=== PATIENT | female | born 1985 | race Caucasian/White ===

== ENCOUNTER 2017-07-26 09:30 | Emergency (ER) | payer OTHER, SELFPAY ==
[2017-07-26 09:31] VITALS: BP 135/103; PULSE 84; RESP 18; TEMP 36.9; O2SAT 98; BMI 34.3
[2017-07-26 09:52] VITALS: BP 124/90; PULSE 80; RESP 14; O2SAT 98
[2017-07-26 10:16] LABS: Absolute Lymphocyte Count 1.57 X10^3/ul (0.83-4.51); Absolute Neutrophil Count 13.9 X10^3/uL (2.0-7.7); Basophil# 0.02 X10^3/uL; Basophil% 0.1 % (0-1); Hematocrit 50.2 % (37-47); Hemoglobin 17.7 g/dl (12.0-15.0); Lymphocyte # 1.57 X10^3/ul (4.0); Lymphocyte % 9.7 % (19-41); Mean Corp Hgb Conc 35.3 g/gl (32-36); Mean Corpuscular Hgb 32.3 pg (27.0-32.0); Mean Corpuscular Volume 91.6 fL (81-99); Mean Platelet Vol. 10.2 fl (6.2-12.0); Monocyte# 0.68 X10^3/uL; Monocyte% 4.2 % (0-10); Neutrophil # 13.92 X10^3/uL (2.7-7.7); Neutrophil % 85.7 % (47-70); Platelet Count 386 K/mm3 (150-450); RBC Distribution Width CV 13.3 % (11.6-14.6); RBC Distribution Width SD 44.5 fl (35.1-43.9); Red Blood Count 5.48 M/mm3 (4.2-5.4); White Blood Count 16.2 K/mm3 (4.4-11.0)
[2017-07-26 10:17] LABS: POSITIVE COUNT NO; POSITIVE DIFFERENTIAL NO; POSITIVE MORPHOLOGY NO
[2017-07-26] MEDS: 0.9% Normal Saline 1,000 ML 1000 ML IV (10:23)
[2017-07-26] MEDS: Ondansetron 4 MG/2 ML Vial IV (10:23)
[2017-07-26 10:31] LABS: BUN 21 mg/dL (7-18); Creatinine, Serum 0.96 mg/dL (0.55-1.02); EST Glomerular Filtration Rate 71 mL/min (>60); Estimated Creatinine Clearance 72.65 ml/min; Glucose 138 mg/dL (74-106)
[2017-07-26 10:32] LABS: AST(SGOT) 31 U/L (15-37); Alanine Aminotransfer ALT/SGPT 29 U/L (13-56); Albumin, Serum 4.1 g/dL (3.2-5.0); Alkaline Phosphatase 63 U/L (45-117); Anion Gap 10 (5-15); BUN/Creat Ratio 21.8 RATIO (10-20); Calcium,Total 9.5 mg/dL (8.5-10.1); Chloride 94 mmol/L (98-107); Est Glom Filt Rate - Afr Amer 86 mL/min (>60); Globulin 4.4 g/dL (2.2-4.2); Lipase 84 U/L (73-393); Potassium 3.4 mmol/L (3.5-5.1); Protein, Total 8.5 g/dL (6.4-8.2); Sodium Level 131 mmol/L (136-145)
--- NOTE | 2017-07-26 11:16 | CT_ITS ---
STUDY: CT ABDOMEN AND PELVIS WITH CONTRAST REASON FOR EXAM: Female, 32 years old. Abdominal pain, nausea and vomiting RADIATION DOSAGE (If Supplied By Facility): CTDIvol = ( 13.32 ) mGy, DLP = ( 852.54 ) mGycm TECHNIQUE: Transaxial images were obtained from the dome of the diaphragm to the symphysis pubis without oral contrast. 100 ml of Isovue 300 contrast was administered. Sagittal and coronal images were reconstructed. Individualized dose optimization techniques were used for this CT. COMPARISON: None. FINDINGS: The visualized lung bases are unremarkable. The visualized portions of the heart are within normal limits. Normal liver. There is non-visualization of the gallbladder, which may be secondary to either contraction or a prior cholecystectomy. Normal spleen. Normal pancreas. Normal bilateral adrenal glands. Normal right kidney. Normal left kidney. Normal visualized stomach. Normal small intestine. Normal colon. The appendix is visualized and appears normal. Normal abdominal aorta. Normal inferior vena cava. Normal retroperitoneum. Normal urinary bladder. Normal visualized uterus. Normal abdominal wall. Normal osseous structures. CT/Abdomen/Pelvis W IV Cont ONLY IMPRESSION: No acute findings. Nonvisualized gallbladder. Normal appearance of the small and large bowel. Normal appendix. Electronically Signed: Jayant Patel DO at 12:10 EST Tel , Service support ,
[2017-07-26 11:37] VITALS: BP 118/70; PULSE 88; RESP 14; O2SAT 99
--- NOTE | 2017-07-26 12:22 | ED.VISSUMM ---
- ER Visit Summary Date of Service: 07/26/17 Chief Complaint: Nausea and vomiting. History of Present Illness: The patient is a 32 F history of peptic ulcer disease. Prior cholecystectomy. Patient states that since Sunday she has had some crampy abdominal pain with nausea vomiting. No diarrhea. No melena. No hematemesis. Has menstrual period was 2 weeks ago. She states she is not . Denies any vaginal bleeding or discharge. No fever. No dysuria. Physical Examination: Female no acute distress. Vital signs are stable afebrile. Pulse ox 90% on room air no signs of hypoxia. Patient does not seem septic or toxic. HEENT exam unremarkable. Dry mucous membranes. Neck nontender no lymphadenopathy. Lungs clear to auscultation bilaterally. Heart regular rhythm rate about 85 no murmur. Abdomen is soft nondistended normal bowel sounds no peritoneal signs. Very mild left upper quadrant tenderness. Epigastric right upper quadrant right lower quadrant are unremarkable. No hernias or masses. No distention. No signs of obstruction. Moving all 4 extremities. Neurovascular intact. Back exam nontender. Neurologic exam is normal. Test Results: White count was elevated 16,000 she has had elevated white counts before. H&H is 17 and 50. Electrolytes sodium 131 potassium 3.4. BUN/creatinine 21 0.9 consistent with mild dehydration. Glucose of 138 normal anion gap. Liver enzymes normal other than a direct bilirubin of 1.2. Lipase normal at 84. Due to the patient's elevated white count states she was not feeling well I did obtain CT abdomen pelvis with IV contrast only which was negative. Status post cholecystectomy. Normal large and small bowel. Normal-appearing appendix is read by the radiologist reviewed by me. Emergency Department Course and Treatment: Repeat exam patient is doing better after IV fluids and IV Zofran. Repeat exam unchanged. I discussed with the patient and family they are comfortable with discharge to home. Treatment Plan: With p.o. Protonix for peptic ulcer disease. Zofran for nausea. Follow-up with her primary care physician Dr. Gia Braun and GI referral as needed. Disposition: Discharge Impression: Nausea and vomiting with abdominal cramping History of peptic ulcer disease This note was generated with Jumptapation software. It may contain incorrect words, spelling, and punctuation that were not noted in review of the chart prior to signing ED Disposition - Plan for ED Patient: Chief Complaint: Abd Pain Referrals: Gia Morse DO [Primary Care Provider] -
--- NOTE | 2017-07-26 12:25 | ED.DCSUM_ITS ---
- ER Visit Summary Date of Service: 07/26/17 Chief Complaint: Nausea and vomiting. History of Present Illness: The patient is a 32 F history of peptic ulcer disease. Prior cholecystectomy. Patient states that since Sunday she has had some crampy abdominal pain with nausea vomiting. No diarrhea. No melena. No hematemesis. Has menstrual period was 2 weeks ago. She states she is not . Denies any vaginal bleeding or discharge. No fever. No dysuria. Physical Examination: Female no acute distress. Vital signs are stable afebrile. Pulse ox 90% on room air no signs of hypoxia. Patient does not seem septic or toxic. HEENT exam unremarkable. Dry mucous membranes. Neck nontender no lymphadenopathy. Lungs clear to auscultation bilaterally. Heart regular rhythm rate about 85 no murmur. Abdomen is soft nondistended normal bowel sounds no peritoneal signs. Very mild left upper quadrant tenderness. Epigastric right upper quadrant right lower quadrant are unremarkable. No hernias or masses. No distention. No signs of obstruction. Moving all 4 extremities. Neurovascular intact. Back exam nontender. Neurologic exam is normal. Test Results: White count was elevated 16,000 she has had elevated white counts before. H&H is 17 and 50. Electrolytes sodium 131 potassium 3.4. BUN/ creatinine 21 0.9 consistent with mild dehydration. Glucose of 138 normal anion gap. Liver enzymes normal other than a direct bilirubin of 1.2. Lipase normal at 84. Due to the patient's elevated white count states she was not feeling well I did obtain CT abdomen pelvis with IV contrast only which was negative. Status post cholecystectomy. Normal large and small bowel. Normal- appearing appendix is read by the radiologist reviewed by me. Emergency Department Course and Treatment: Repeat exam patient is doing better after IV fluids and IV Zofran. Repeat exam unchanged. I discussed with the patient and family they are comfortable with discharge to home. Treatment Plan: With p.o. Protonix for peptic ulcer disease. Zofran for nausea. Follow-up with her primary care physician Dr. Gia Braun and GI referral as needed. Disposition: Discharge Impression: Nausea and vomiting with abdominal cramping History of peptic ulcer disease This note was generated with NewACTation software. It may contain incorrect words, spelling, and punctuation that were not noted in review of the chart prior to signing ED Disposition - Plan for ED Patient: Chief Complaint: Abd Pain Referrals: Gia Morse DO [Primary Care Provider] -
--- NOTE | 2017-07-26 12:25 | ED.DEP ---
ED Disposition - Plan for ED Patient: Disposition: Home or Assisted Living Chief Complaint: Abd Pain Instructions: ED PUD Vs Gastritis Prescriptions: Ondansetron [Zofran Odt] 4 mg PO Q4H PRN PRN #10 tab.rapdis PRN Reason: Nausea Pantoprazole Sodium [Protonix] 40 mg PO DAILY #30 tab Referrals: Gia Morse DO [Primary Care Provider] - 3-5 Days if not improving Additional Instructions: Fluids and rest. Zofran for nausea. Protonix for peptic ulcer disease. Return if feeling worse, fever, intractable vomiting, black or bloody stools or throwing up blood.
[2017-07-26] MEDS: Pantoprazole Sodium 40 MG Tablet PO (12:45)
[2017-07-26 12:47] VITALS: BP 115/70; PULSE 75; RESP 14; O2SAT 98
== END 2017-07-26 12:48 | disposition home or self-care (01) ==
PROVIDERS: Emergency Provider Emergency Medicine; Family Provider Family Medicine; PCP Family Medicine
DX: R11.2 Nausea with vomiting, unspecified (principal); R10.812 Left upper quadrant abdominal tenderness; K27.9 Peptic ulcer, site unspecified, unspecified as acute or chronic, without hemorrhage or perforation; Z90.49 Acquired absence of other specified parts of digestive tract
CPT/HCPCS: 74177; 80048; 80076; 83690; 85025; 96361; 96374; 96375; 99284; J7030; Q9967; J2405

== ENCOUNTER 2017-07-27 09:51 | Emergency (ER) | payer OTHER, SELFPAY ==
[2017-07-27 09:53] VITALS: BP 147/91; PULSE 79; RESP 18; TEMP 36.9; O2SAT 95; BMI 32.6
--- NOTE | 2017-07-27 10:24 | ED.VISSUMM ---
- ER Visit Summary Date of Service: 07/27/17 Chief Complaint: Nausea and vomiting History of Present Illness: The patient is a 32 F presenting with nausea and vomiting. She states it started on Sunday. She was seen in the ED yesterday for same complaints. She was given IV fluids, Zofran. Lab work was unremarkable. CT abdomen pelvis IV contrast showed no acute process. Patient was sent home with Protonix and Zofran. She states she was doing well until the middle the night when she began vomiting again. She has a history of peptic ulcer disease. Prior history of cholecystectomy. She has had subjective fever. She denies chest pain or shortness of breath. She has constipation. Denies possibility of . Denies other complaints. Physical Examination: Vitals are stable. Patient is afebrile. Alert no acute distress. HEENT exam is unremarkable. Neck is supple. Lungs are clear and equal bilaterally. Heart is regular rate and rhythm. Abdomen is soft mild epigastric tenderness with no rebound or guarding. Extremities are unremarkable. Skin is warm and dry. No focal neurologic deficit. Remainder of exam is unremarkable. Emergency Department Course and Treatment: Patient was given IV fluids, Phenergan. CBC shows a white count 12.7 which is improved from yesterday. Chemistries show sodium 133, glucose 122. Lipase is normal. Total bili 1.4, AST 58. HCG negative. Patient was given a GI cocktail with some improvement. She is able to tolerate p.o. in the emergency department. Advised follow-up with her primary care physician and Dr. Waite for GI. Advised return to ED for worsening complaints. Disposition: Discharge home Impression: Nausea, vomiting This note was generated with Browserling dictation software. It may contain incorrect words, spelling, and punctuation that were not noted in review of the chart prior to signing ED Disposition - Plan for ED Patient: Chief Complaint: Fatigue Referrals: Gia Morse DO [Primary Care Provider] -
[2017-07-27 10:36] LABS: Absolute Neutrophil Count 9.1 X10^3/uL (2.0-7.7); Basophil# 0.02 X10^3/uL; Basophil% 0.2 % (0-1); Eosinophil# 0.02 X10^3/uL; Eosinophils% 0.2 % (0-5); Hematocrit 48.3 % (37-47); Hemoglobin 16.6 g/dl (12.0-15.0); Lymphocyte % 17.3 % (19-41); Mean Corp Hgb Conc 34.4 g/gl (32-36); Mean Corpuscular Hgb 31.9 pg (27.0-32.0); Mean Corpuscular Volume 92.7 fL (81-99); Mean Platelet Vol. 10.2 fl (6.2-12.0); Monocyte# 1.34 X10^3/uL; Monocyte% 10.6 % (0-10); Neutrophil # 9.09 X10^3/uL (2.7-7.7); Neutrophil % 71.5 % (47-70); Platelet Count 349 K/mm3 (150-450); RBC Distribution Width CV 13.1 % (11.6-14.6); RBC Distribution Width SD 44.7 fl (35.1-43.9); Red Blood Count 5.21 M/mm3 (4.2-5.4); White Blood Count 12.7 K/mm3 (4.4-11.0)
[2017-07-27] MEDS: 0.9% Normal Saline 1,000 ML 1000 ML IV (10:37)
[2017-07-27 10:47] LABS: POSITIVE COUNT NO; POSITIVE DIFFERENTIAL NO; POSITIVE MORPHOLOGY NO
[2017-07-27 10:56] LABS: ALB/GLOB Ratio 0.9 RATIO (0.9-2.4); AST(SGOT) 58 U/L (15-37); Alanine Aminotransfer ALT/SGPT 50 U/L (13-56); Albumin, Serum 3.7 g/dL (3.2-5.0); Alkaline Phosphatase 56 U/L (45-117); Anion Gap 6 (5-15); BUN 14 mg/dL (7-18); BUN/Creat Ratio 14.9 RATIO (10-20); Calcium,Total 8.6 mg/dL (8.5-10.1); Chloride 98 mmol/L (98-107); Creatinine, Serum 0.94 mg/dL (0.55-1.02); EST Glomerular Filtration Rate 73 mL/min (>60); Est Glom Filt Rate - Afr Amer 88 mL/min (>60); Estimated Creatinine Clearance 74.19 ml/min; Globulin 4.3 g/dL (2.2-4.2); Glucose 122 mg/dL (74-106); Lipase 111 U/L (73-393); Potassium 3.9 mmol/L (3.5-5.1); Sodium Level 133 mmol/L (136-145)
[2017-07-27 11:03] LABS: Pregnancy, Serum, hCG Quali. NEGATIVE Negative (0-9 Nonpreg)
--- NOTE | 2017-07-27 11:22 | ED.DEP ---
ED Disposition - Plan for ED Patient: Chief Complaint: Fatigue Instructions: ED Nausea Vomiting Prescriptions: ProMETHAzine [Phenergan] 25 mg PO Q6H PRN PRN #10 tablet PRN Reason: Nausea Referrals: Gia Morse DO [Primary Care Provider] - Simon Waite MD [STAFF PHYSICIAN] -
[2017-07-27 11:39] VITALS: BP 129/66; PULSE 71; RESP 16; O2SAT 97
== END 2017-07-27 11:40 | disposition home or self-care (01) ==
PROVIDERS: Emergency Provider Emergency Medicine; Family Provider Family Medicine; PCP Family Medicine
DX: R11.2 Nausea with vomiting, unspecified (principal); R10.816 Epigastric abdominal tenderness; K59.00 Constipation, unspecified; K27.9 Peptic ulcer, site unspecified, unspecified as acute or chronic, without hemorrhage or perforation; Z90.49 Acquired absence of other specified parts of digestive tract; Z79.899 Other long term (current) drug therapy
CPT/HCPCS: 80053; 83690; 84703; 85025; 96361; 96374; 99283; J7030; A4216

== ENCOUNTER 2017-10-05 21:44 | Emergency (ER) | payer OTHER, SELFPAY ==
[2017-10-05 21:47] VITALS: BP 147/117; PULSE 101; RESP 16; TEMP 36.9; O2SAT 96; BMI 32.3
--- NOTE | 2017-10-05 22:06 | ED.DCSUM_ITS ---
- ER Visit Summary Date of Service: 10/05/17 Chief Complaint: [] Nausea and vomiting History of Present Illness: The patient is a 32 F [] complaining of nausea and vomiting for last 2 days. She had 3 episodes of emesis on Sunday and none on . She had 4 episodes today. The last one she has had some very small streaks of blood. She showed me a picture of this which is very mild. She had one episode of loose diarrhea on Sunday only. She denies any significant abdominal pain. No bad food exposures or recent antibiotics. She has been using Prilosec at baseline for her history of stomach ulcer. She had a similar episode 2 months ago with 2 visits to the ER. She did not receive a diagnosis. She did not follow-up with GI. She had a CT abdomen pelvis at that time that showed nothing acute. Lab work was essentially unremarkable. Physical Examination: Vital signs reviewed General: Well-nourished well-developed Head: Normocephalic atraumatic Eyes: Pupils equal round and reactive to light extraocular movements intact ENT: TMs clear no hemotympanum no trauma Neck: Nontender full range of motion Cardiovascular: Regular rate rhythm no murmurs normal S1-S2 Respiratory: No distress clear to auscultation bilaterally chest nontender Abdomen: Soft nontender nondistended normal bowel sounds no masses Back: Nontender no CVA tenderness Extremities: Nontender active range of motion ?4 extremities no trauma Skin: Normal color no trauma Neuro alert oriented cranial nerves II through XII intact normal strength sensation reflexes Test Results: [] Emergency Department Course and Treatment: Given IV fluids Zofran and Toradol or lab work obtained. Lab work essentially unremarkable. Sodium 134 which is similar to previous. Potassium 3.3. Chloride 96 down from 98 previous. Total bili 1.4 which is equal to previous. Lipase negative. negative. Patient given Phenergan as well for her symptoms with good relief. At this time I do not feel she needs to be admitted. I do not feel she needs another CAT scan. I feel she can follow-up. She will be given antinausea medications for home. Treatment Plan: [] Disposition: [] Impression: [] Nausea and Vomiting This note was generated with [employer] dictation software. It may contain incorrect words, spelling, and punctuation that were not noted in review of the chart prior to signing ED Disposition - Plan for ED Patient: Chief Complaint: Nausea/Vomiting Referrals: Gia Morse DO [Primary Care Provider] -
[2017-10-05] MEDS: Ondansetron 4 MG/2 ML Vial IV (22:33)
[2017-10-05] MEDS: Ketorolac 30 MG/ML Syringe IV (22:33)
[2017-10-05] MEDS: 0.9% Normal Saline 1,000 ML 1000 ML IV (22:33)
[2017-10-05 23:05] LABS: AST(SGOT) 20 U/L (15-37); Alanine Aminotransfer ALT/SGPT 30 U/L (13-56); Albumin, Serum 4.2 g/dL (3.2-5.0); Alkaline Phosphatase 60 U/L (45-117); Anion Gap 9 (5-15); BUN 19 mg/dL (7-18); BUN/Creat Ratio 18.8 RATIO (10-20); Bilirubin, Direct 0.29 mg/dL (0.00-0.30); Calcium,Total 9.4 mg/dL (8.5-10.1); Chloride 96 mmol/L (98-107); Creatinine, Serum 1.01 mg/dL (0.55-1.02); EST Glomerular Filtration Rate 67 mL/min (>60); Est Glom Filt Rate - Afr Amer 81 mL/min (>60); Estimated Creatinine Clearance 69.05 ml/min; Globulin 4.3 g/dL (2.2-4.2); Glucose 124 mg/dL (74-106); Lipase 116 U/L (73-393); Potassium 3.3 mmol/L (3.5-5.1); Protein, Total 8.5 g/dL (6.4-8.2); Sodium Level 134 mmol/L (136-145)
[2017-10-05 23:15] LABS: Pregnancy, Serum, hCG Quali. NEGATIVE Negative (0-9 Nonpreg)
[2017-10-05] MEDS: proMETHazine 25 MG/ML Syringe 12.5 MG IV (23:46)
--- NOTE | 2017-10-05 23:53 | ED.DEP ---
ED Disposition - Plan for ED Patient: Disposition: Home or Assisted Living Chief Complaint: Nausea/Vomiting Instructions: ED Nausea Vomiting Prescriptions: Ondansetron [Zofran Odt] 4 mg PO Q8H PRN PRN #10 tablet PRN Reason: Nausea Referrals: Gia Morse DO [Primary Care Provider] -
[2017-10-06 01:04] VITALS: BP 154/90; PULSE 94; RESP 18; O2SAT 98
== END 2017-10-06 01:05 | disposition home or self-care (01) ==
PROVIDERS: Emergency Provider Emergency Medicine; Family Provider Family Medicine; PCP Family Medicine
DX: R11.2 Nausea with vomiting, unspecified (principal); R19.7 Diarrhea, unspecified; E66.9 Obesity, unspecified; K25.9 Gastric ulcer, unspecified as acute or chronic, without hemorrhage or perforation; Z90.49 Acquired absence of other specified parts of digestive tract; Z79.899 Other long term (current) drug therapy
CPT/HCPCS: 80048; 80076; 83690; 84703; 96361; 96374; 96375; 99285; J7030; A4216; J2405

== ENCOUNTER 2019-08-07 10:01 | Emergency (ER) | payer SELFPAY ==
[2019-08-07 10:02] VITALS: BP 167/88; PULSE 101; RESP 16; TEMP 36.6; O2SAT 100; BMI 27.4
--- NOTE | 2019-08-07 10:25 | ED.DCSUM_ITS ---
- ER Visit Summary Date of Service: 08/07/19 Chief Complaint: Vaginal bleeding and reportedly 7 weeks History of Present Illness: The patient is a 34 F G2, P1 Ab0. Patient states that she is about 7 weeks . She has had no care. Reportedly had a positive test both at home and in urgent care. States that she has had spotting to very mild bleeding for the last 3 weeks since July 19. No pain. No discharge. No dysuria. With her first she had no problems. She was a . Physical Examination: 34-year-old female no acute distress vital signs stable afebrile. HEENT exam unremarkable. Neck nontender. Lungs clear to auscultat ion. Heart regular rhythm no murmur. Abdomen soft nontender normal bowel sounds no peritoneal signs. No suprapubic tenderness. Moving all 4 extremities. No edema. Neurologically awake alert with no focal motor deficits. Test Results: [Quant is 185. ABO H is a positive. I discussed these results with the patient and her significant other. Emergency Department Course and Treatment: Patient with vaginal bleeding reportedly . Consider miscarriage versus ectopic but she is having absolutely no pain. Quantitative hCG and blood type will be obtained. She is had a prior child but there is no blood type that I can find in the computer. Repeat exam at 1224 patient is doing well. She is having no pain. She has had no pain. Her abdomen is benign. She has deferred a pelvic exam. She will follow-up with her [facility] office [facility] and have a repeat quant and exam next week possibly ultrasound if her quant is getting larger. She knows return if worse. Treatment Plan: Follow-up with [facility]. Return if pain or heavy bleeding. Disposition: Discharge Impression: Acute vaginal bleeding with first trimester Threatened miscarriage This note was generated with [employer] software. It may contain incorrect words, spelling, and punctuation that were not noted in review of the chart prior to signing ED Disposition - Plan for ED Patient: Referrals: NOT,DEFINED [NON-STAFF] -
[2019-08-07 11:53] LABS: hCG Titer Quant., Serum 185 mIU/mL (1-3)
--- NOTE | 2019-08-07 12:37 | DCINST.ED_ITS ---
ED Disposition - Plan for ED Patient: Disposition: Home or Assisted Living Instructions: POSSIBLE MISCARRIAGE (Threatened ) Referrals: Jos Leary MD [STAFF PHYSICIAN] - 3-5 Days Additional Instructions: Follow-up with [facility]. You need a repeat quantitative hCG and possibly an ultrasound. Return if pain or heavy bleeding. You will still probably have some bleeding.
[2019-08-07 12:42] VITALS: BP 132/86; PULSE 76; RESP 15; O2SAT 97
== END 2019-08-07 12:44 | disposition home or self-care (01) ==
PROVIDERS: Emergency Provider Emergency Medicine
DX: O20.0 Threatened abortion (principal); O99.331 Smoking (tobacco) complicating pregnancy, first trimester; F17.200 Nicotine dependence, unspecified, uncomplicated; Z3A.01 Less than 8 weeks gestation of pregnancy
CPT/HCPCS: 84702; 86900; 86901; 99282

== ENCOUNTER → 2019-08-08 15:39 | Outpatient (CLI) | payer SELFPAY ==
[2019-08-07 10:02] VITALS: BMI 27.4
[2019-08-08 17:08] LABS: AST(SGOT) 23 U/L (15-37); Alanine Aminotransfer ALT/SGPT 29 U/L (13-56); Albumin, Serum 3.8 g/dL (3.2-5.0); Alkaline Phosphatase 56 U/L (45-117); Anion Gap 3 (5-15); BUN 14 mg/dL (7-18); BUN/Creat Ratio 21.1 RATIO (10-20); Calcium,Total 9.2 mg/dL (8.5-10.1); Chloride 103 mmol/L (98-107); Creatinine, Serum 0.66 mg/dL (0.55-1.02); EST Glomerular Filtration Rate 108 mL/min (>60); Est Glom Filt Rate - Afr Amer 131 mL/min (>60); Glucose 87 mg/dL (74-106); Potassium 3.7 mmol/L (3.5-5.1); Protein, Total 7.8 g/dL (6.4-8.2); Sodium Level 138 mmol/L (136-145)
[2019-08-08 17:10] LABS: Hematocrit 42.7 % (37-47); Mean Corp Hgb Conc 32.8 g/dL (32-36); Mean Corpuscular Hgb 29.8 pg (27.0-32.0); Mean Corpuscular Volume 90.9 fL (81-99); Platelet Count 394 K/mm3 (150-450); RBC Distribution Width CV 12.8 % (11.6-14.6); RBC Distribution Width SD 42.4 fl (35.1-43.9); White Blood Count 7.7 K/mm3 (4.4-11.0)
== END ==
PROVIDERS: Visit Provider Obstetrics & Gynecology
DX: O02.81 Inappropriate change in quantitative human chorionic gonadotropin (hCG) in early pregnancy (principal)
CPT/HCPCS: 36415; 80053; 85027

== ENCOUNTER → 2019-08-12 10:54 | Outpatient (CLI) | payer OTHER, SELFPAY ==
[2019-08-07 10:02] VITALS: BMI 27.4
[2019-08-12 11:45] LABS: hCG Titer Quant., Serum 104 mIU/mL (1-3)
== END ==
PROVIDERS: Visit Provider Obstetrics & Gynecology
DX: O02.81 Inappropriate change in quantitative human chorionic gonadotropin (hCG) in early pregnancy (principal)
CPT/HCPCS: 36415; 84702

== ENCOUNTER → 2019-08-15 13:31 | Outpatient (CLI) | payer OTHER, SELFPAY ==
[2019-08-07 10:02] VITALS: BMI 27.4
[2019-08-15 14:21] LABS: hCG Titer Quant., Serum 82 mIU/mL (1-3)
== END ==
PROVIDERS: Referring Provider Obstetrics & Gynecology; Visit Provider Obstetrics & Gynecology
DX: O00.90 Unspecified ectopic pregnancy without intrauterine pregnancy (principal)
CPT/HCPCS: 36415; 84702

== ENCOUNTER → 2019-08-18 16:28 | Outpatient (CLI) | payer OTHER, SELFPAY ==
[2019-08-07 10:02] VITALS: BMI 27.4
[2019-08-18 16:59] LABS: Hematocrit 41.4 % (37-47); Hemoglobin 13.8 g/dL (12.0-15.0); Mean Corp Hgb Conc 33.3 g/dL (32-36); Mean Corpuscular Hgb 29.9 pg (27.0-32.0); Mean Corpuscular Volume 89.6 fL (81-99); Mean Platelet Vol. 10.1 fl (6.2-12.0); Platelet Count 333 K/mm3 (150-450); RBC Distribution Width CV 12.8 % (11.6-14.6); RBC Distribution Width SD 41.5 fl (35.1-43.9); Red Blood Count 4.62 M/mm3 (4.2-5.4); White Blood Count 6.5 K/mm3 (4.4-11.0)
[2019-08-18 17:20] LABS: ALB/GLOB Ratio 0.9 RATIO (0.9-2.4); AST(SGOT) 30 U/L (15-37); Alanine Aminotransfer ALT/SGPT 40 U/L (13-56); Albumin, Serum 3.5 g/dL (3.2-5.0); Alkaline Phosphatase 56 U/L (45-117); Anion Gap 3 (5-15); BUN 14 mg/dL (7-18); BUN/Creat Ratio 14.6 RATIO (10-20); Calcium,Total 8.8 mg/dL (8.5-10.1); Chloride 106 mmol/L (98-107); Creatinine, Serum 0.96 mg/dL (0.55-1.02); EST Glomerular Filtration Rate 71 mL/min (>60); Est Glom Filt Rate - Afr Amer 85 mL/min (>60); Globulin 3.9 g/dL (2.2-4.2); Glucose 103 mg/dL (74-106); Protein, Total 7.4 g/dL (6.4-8.2); Sodium Level 139 mmol/L (136-145)
[2019-08-18 17:23] LABS: hCG Titer Quant., Serum 38 mIU/mL (1-3)
== END ==
PROVIDERS: Referring Provider Obstetrics & Gynecology; Visit Provider Obstetrics & Gynecology
DX: O00.90 Unspecified ectopic pregnancy without intrauterine pregnancy (principal); Z3A.00 Weeks of gestation of pregnancy not specified
CPT/HCPCS: 36415; 80053; 84702; 85027

== ENCOUNTER 2019-10-29 07:33 | Emergency (ER) | payer MEDICAID, SELFPAY ==
[2019-10-29 07:35] VITALS: BP 161/118; PULSE 91; RESP 18; TEMP 36.4; O2SAT 99; BMI 25.7
--- NOTE | 2019-10-29 07:44 | ED.VIS.GI ---
History of Present Illness Chief Complaint: Nausea/Vomiting Informant: Patient - Abdominal Pain/Flank Pain Onset: - - denies abd pain - Nausea/Vomiting/Emesis GI Symptom: Nausea, Vomiting, - - Modifiers: Worse with eating or drinking anything. Better with nothing. Onset: Yesterday Quality: Nonbilious. Negative for: Blood streaks, Coffee ground, Hematemesis Severity: Severe - I can't keep anything down - Diarrhea/Melena/Hematochezia GI Symptom: Negative for: Diarrhea, Melena, Hematochezia Associated Symptoms: - - last urinated this AM. Negative for: Dysuria, Frequency, Hematuria, Urgency Narrative: Patient presents saying that since she is vomiting she must have a flareup of her peptic ulcer disease. She denies any abdominal pain. She states she cannot keep any fluids down, but she states she did urinate this morning. She denies any syncope or near syncope. She does have some burning upper esophagus in her chest from all of the vomiting, it started after the vomiting. She has Protonix at home that she does not take regularly and cannot keep down because of the vomiting. She denies , abdominal pain, diarrhea, urinary issues, back pain, hematemesis, coffee-ground emesis, bright red blood per rectum, melena. Patient denies any known sick contacts, denies suspicion for foodborne illness, denies recent travel, ingestion of ground water sources, recent antibiotics. - Past Medical History (1) PUD (peptic ulcer disease) Status: Chronic Past Medical History - Allergies and Home Meds Allergies/Adverse Reactions: Allergies No Known Allergies Allergy (Verified 10/29/19 07:34) Primary Care Physician: Care Physician,No Primary [Primary Care Provider] - Smoking Status: Current every day smoker Alcohol: None Review of Systems General: Reports: Malaise. Denies: Chills, Fever, Sweats Eyes: Denies: Visual changes - bilaterally, Diplopia ENT: Denies: Rhinorrhea, Sore throat Cardiovascular: Reports: Chest pain. Denies: Palpitations Respiratory: Denies: Dyspnea, Cough, Dyspnea on exertion Gastrointestinal: Reports: Nausea, Vomiting. Denies: Abdominal pain, Diarrhea, Melena, Hematochezia Genitourinary: Denies: Dysuria, Hematuria, Frequency Musculoskeletal: Denies: Back pain, Swelling, Extremity Pain Skin: Denies: Rash, Wounds Neurological: Denies: Headache, Weakness, Numbness Physical Exam Vital Signs/Narrative: Vital Signs Temp Pulse Resp BP Pulse Ox 10/29/19 07:35 97.5 F L 91 18 161/118 H 99 Inital Vital Signs reviewed: Yes General: Well nourished, Well developed, No Acute Distress Head: Normocephalic, Atraumatic Eyes: Perrl, EOMI ENT: Moist mucous membranes, No rhinorrhea. Negative for: Dry mucous membranes Neck: Supple, Nontender Cardiovascular: Regular rate, Regular rhythm, No murmurs. Negative for: Tachycardia Respiratory: No distress, CTA bilaterally, Chest nontender Abdomen: Soft, Nontender, Nondistended, Normal bowel sounds, No masses Back: Nontender, Normal Inspection. Negative for: CVA tenderness Extremities: Nontender, No edema Skin: Normal color, No rash, No Trauma Neurological: Alert, Oriented x3, Cranial nerves II-XII grossly intact, Normal Strength, Normal Sensation Psychological: Normal affect, Normal Mood Diagnostic/Tx/Re-eval Laboratory Results 10/29/19 10/29/19 10/29/19 08:20 08:20 08:20 WBC 18.3 H RBC 5.77 H Hgb 17.5 H Hct 52.1 H MCV 90.3 MCH 30.3 MCHC 33.6 RDW Std Deviation 42.1 RDW Coeff of Sabi 12.8 Plt Count 433 MPV 10.0 Immature Gran % (Auto) 0.400 Neut % (Auto) 89.6 H Lymph % (Auto) 7.2 L [place] % (Auto) 2.6 Eos % (Auto) 0.0 Baso % (Auto) 0.2 Absolute Neuts (auto) 16.4 H Absolute Lymphs (auto) 1.32 Nucleated RBC % 0 Sodium 134 L Potassium 3.6 Chloride 100 Carbon Dioxide 27.0 Anion Gap 7 BUN 12 Creatinine 0.82 Estim Creat Clear Calc 83.48 Est GFR (MDRD) Af Amer 102 Est GFR (MDRD) Non-Af 85 BUN/Creatinine Ratio 14.7 Glucose 156 H Calcium 9.5 Total Bilirubin 0.80 AST 21 ALT 25 Alkaline Phosphatase 67 Total Protein 9.1 H Albumin 4.3 Globulin 4.8 H Albumin/Globulin Ratio 0.9 Lipase 50 L Serum , Qual NEGATIVE - Medical Decision Making Labs and obtained, patient given liter of IV fluid along with Zofran. She did feel better except she still had burning of her esophagus. She was given a GI cocktail. She tolerated oral fluids and that medication. She feels better. Her labs are normal except for a leukocytosis, she has had unexplained leukocytosis in the past, although certainly an ulcer could cause this due to stress. That being said, she certainly has no findings consistent with a bleeding or perforated ulcer and her abdomen is extremely benign and nontender. We will give her prescription for Phenergan to use along with the Protonix that she already has at home, advised to follow-up with her doctor. ED Disposition - Plan for ED Patient: Disposition: Home or Assisted Living Diagnosis: Vomiting, History of peptic ulcer disease Instructions: ED Nausea Vomiting Adult Prescriptions: proMETHazine tablet [Phenergan] 25 mg PO Q6H PRN PRN #12 tab PRN Reason: Nausea Transmission Status: Pending to [facility] Referrals: Lay Navarro MD [STAFF PHYSICIAN] - Additional Instructions: Take your Protonix as prescribed, you already had today's dose. 1 pill daily. Follow-up with your doctor as listed.
[2019-10-29] MEDS: Ondansetron 4 MG/2 ML Vial IV (08:18)
[2019-10-29] MEDS: 0.9% Normal Saline 1,000 ML 1000 ML IV (08:19)
[2019-10-29 08:30] LABS: Absolute Lymphocyte Count 1.32 X10^3/uL (0.83-4.51); Absolute Neutrophil Count 16.4 X10^3/uL (2.0-7.7); Basophil# 0.03 X10^3/uL; Basophil% 0.2 % (0-1); Hematocrit 52.1 % (37-47); Hemoglobin 17.5 g/dL (12.0-15.0); Lymphocyte # 1.32 X10^3/ul (4.0); Lymphocyte % 7.2 % (19-41); Mean Corp Hgb Conc 33.6 g/dL (32-36); Mean Corpuscular Hgb 30.3 pg (27.0-32.0); Mean Corpuscular Volume 90.3 fL (81-99); Monocyte# 0.48 X10^3/uL; Monocyte% 2.6 % (0-10); NRBC Flagged by Analyzer 0 % (0-5); Neutrophil # 16.38 X10^3/uL (2.7-7.7); Neutrophil % 89.6 % (47-70); Platelet Count 433 K/mm3 (150-450); RBC Distribution Width CV 12.8 % (11.6-14.6); RBC Distribution Width SD 42.1 fl (35.1-43.9); Red Blood Count 5.77 M/mm3 (4.2-5.4); White Blood Count 18.3 K/mm3 (4.4-11.0)
[2019-10-29 08:46] LABS: ALB/GLOB Ratio 0.9 RATIO (0.9-2.4); AST(SGOT) 21 U/L (15-37); Alanine Aminotransfer ALT/SGPT 25 U/L (13-56); Albumin, Serum 4.3 g/dL (3.2-5.0); Alkaline Phosphatase 67 U/L (45-117); Anion Gap 7 (5-15); BUN 12 mg/dL (7-18); BUN/Creat Ratio 14.7 RATIO (10-20); Calcium,Total 9.5 mg/dL (8.5-10.1); Chloride 100 mmol/L (98-107); Creatinine, Serum 0.82 mg/dL (0.55-1.02); EST Glomerular Filtration Rate 85 mL/min (>60); Est Glom Filt Rate - Afr Amer 102 mL/min (>60); Estimated Creatinine Clearance 83.48 ml/min; Globulin 4.8 g/dL (2.2-4.2); Glucose 156 mg/dL (74-106); Lipase 50 U/L (73-393); Potassium 3.6 mmol/L (3.5-5.1); Protein, Total 9.1 g/dL (6.4-8.2); Sodium Level 134 mmol/L (136-145)
[2019-10-29 08:53] LABS: Internal QC Validated? YES +Cl - CLEAR BKGD; Pregnancy, Serum, hCG Quali. NEGATIVE Negative
[2019-10-29] MEDS: Pantoprazole Sodium 40 MG Tablet PO (10:49)
[2019-10-29] MEDS: Mag Hydrox/Al Hydrox/Simeth 30 ML UDC PO (10:49)
[2019-10-29 11:46] VITALS: BP 130/74; PULSE 80; RESP 18; O2SAT 98
== END 2019-10-29 11:48 | disposition home or self-care (01) ==
PROVIDERS: Emergency Provider Emergency Medicine
DX: R11.2 Nausea with vomiting, unspecified (principal); Z79.899 Other long term (current) drug therapy; F17.200 Nicotine dependence, unspecified, uncomplicated; Z87.11 Personal history of peptic ulcer disease
CPT/HCPCS: 80053; 83690; 84703; 85025; 96361; 96374; 99283; J7030; A4216; J2405

== ENCOUNTER 2019-10-31 10:16 | Emergency (ER) | payer MEDICAID, SELFPAY ==
[2019-10-31 10:17] VITALS: BP 123/88; PULSE 87; RESP 17; TEMP 36.4; O2SAT 95; BMI 27.3
--- NOTE | 2019-10-31 10:30 | CT_ITS ---
STUDY: CT ABDOMEN AND PELVIS WITH CONTRAST REASON FOR EXAM: Female, 34 years old. Abdomen pain, intermittent fever, chills, elevated WBC, hx peptic ulcer disease. Prior cholecystectomy. RADIATION DOSAGE (If Supplied By Facility): CTDIvol = ( 10.91 ) mGy, DLP = ( 603.07 ) mGycm TECHNIQUE: Transaxial images were obtained from the dome of the diaphragm to the symphysis pubis with oral contrast. IV 100mL Isovue-300 and amp; gastrografin was administered. Sagittal and coronal images were reconstructed. Individualized dose optimization techniques were used for this CT. COMPARISON: Comparison is made with prior examination dated July 26, 2017. FINDINGS: The visualized lung bases are unremarkable. The visualized portions of the heart are within normal limits. Normal liver. The patient is status post prior cholecystectomy. Minimal degree of central intrahepatic biliary ductal dilatation. Normal spleen. Normal pancreas. Normal bilateral adrenal glands. Normal right kidney. Normal left kidney. Normal visualized stomach. Normal small intestine. Normal colon. The appendix is visualized and appears normal. There is scattered atherosclerotic calcification of the abdominal aorta, without a demonstrated aneurysm. Normal inferior vena cava. Normal retroperitoneum. Normal urinary bladder. There is a 1.9 cm x 1.7 cm dominant follicle in the left ovary. 1.8 cm dominant follicle in the right ovary. Normal abdominal wall. Normal osseous structures. CT/Abdomen/Pelvis WITH Contrast IMPRESSION: Status post cholecystectomy. Bilateral ovarian follicles. Electronically Signed: Pako Evans, at 12:58 EDT , Service support ,
--- NOTE | 2019-10-31 10:32 | ED.DCSUM_ITS ---
History of Present Illness Chief Complaint: Abd Pain Informant: Patient Onset: Days - 4 days Context: Gradual Onset Timing: Waxes and wanes Current Severity: Moderate Maximum Severity: Severe Narrative: Patient presents with upper abdominal pain for the past 4 days. She believes it is secondary to her peptic ulcer. She was seen in the ER 2 days ago with nausea and vomiting. She states she was previously on Protonix but ran out of the prescription. She denies having a bowel movement for the past week. She states she has not been able to eat in the last 5 days. Last night showed a temperature of 100.5. She denies cough or congestion. She denies urinary symptoms. - Past Medical History (1) PUD (peptic ulcer disease) Status: Chronic Past Medical History - Allergies and Home Meds Allergies/Adverse Reactions: Allergies No Known Allergies Allergy (Verified 10/31/19 10:17) Primary Care Physician: Care Physician,No Primary [Primary Care Provider] - Prior records reviewed: Yes Surgical History: cholecystectomy Smoking Status: Never smoker Review of Systems General: Reports: Fever Eyes: Denies: Visual changes - bilaterally ENT: Denies: Bilateral ear pain Cardiovascular: Denies: Chest pain Respiratory: Denies: Dyspnea, Cough Gastrointestinal: Reports: Abdominal pain, Nausea, Vomiting Genitourinary: Denies: Dysuria Musculoskeletal: Denies: Swelling, Extremity Pain Skin: Denies: Rash Neurological: Denies: Headache Hematologic: Denies: Easy bruising, Easy bleeding Allergy: Denies: Uticaria Physical Exam Vital Signs/Narrative: Vital Signs Temp Pulse Resp BP Pulse Ox 10/31/19 10:17 97.5 F L 87 17 123/88 H 95 Inital Vital Signs reviewed: Yes General: Well nourished, Well developed Head: Normocephalic ENT: Moist mucous membranes Neck: Supple Cardiovascular: Regular rate, Regular rhythm Respiratory: No distress, CTA bilaterally Abdomen: Soft, Tender - Mild upper abdominal tenderness. No guarding or rebound., Hypoactive bowel sounds. Negative for: Guarding, Rebound tenderness Skin: Normal color Neurological: Alert, Oriented x3 Psychological: Normal affect Diagnostic/Tx/Re-eval Impressions Abdomen/Pelvis CT 10/31/19 10:30 IMPRESSION: Status post cholecystectomy. Bilateral ovarian follicles. Electronically Signed: Pako Evans, at 12:58 EDT , Service support , 10/31/19 10:30 Abdomen/Pelvis WITH Contrast [CT] Stat Laboratory Results 10/31/19 10/31/19 10/31/19 10:42 10:42 10:42 WBC 11.1 H RBC 5.84 H Hgb 17.5 H Hct 52.9 H MCV 90.6 MCH 30.0 MCHC 33.1 RDW Std Deviation 41.4 RDW Coeff of Sabi 12.7 Plt Count 440 MPV 9.9 Immature Gran % (Auto) 0.300 Neut % (Auto) 70.8 H Lymph % (Auto) 19.1 [place] % (Auto) 9.5 Eos % (Auto) 0.1 Baso % (Auto) 0.2 Absolute Neuts (auto) 7.9 H Absolute Lymphs (auto) 2.12 Nucleated RBC % 0 Sodium 134 L Potassium 3.8 Chloride 102 Carbon Dioxide 26.0 Anion Gap 6 BUN 15 Creatinine 0.84 Estim Creat Clear Calc 81.49 Est GFR (MDRD) Af Amer 100 Est GFR (MDRD) Non-Af 82 BUN/Creatinine Ratio 17.9 Glucose 107 H Calcium 9.2 Total Bilirubin 1.20 H Direct Bilirubin 0.33 H AST 36 ALT 41 Alkaline Phosphatase 62 Total Protein 8.5 H Albumin 3.9 Globulin 4.6 H Albumin/Globulin Ratio 0.8 L Lipase 63 L Serum , Qual NEGATIVE - Medical Decision Making Patient was given morphine and Zofran along with Protonix and a GI cocktail. CT scan was obtained and reveals no acute cause for her upper abdominal pain. Patient will be given a prescription for her Protonix along with Carafate. She will be given a prescription for additional Phenergan. She is referred to Dr. Waite, GI physician. ED Disposition - Plan for ED Patient: Disposition: Home or Assisted Living Diagnosis: Epigastric pain Instructions: ED Epigastric Pain [facility] Prescriptions: Sucralfate [Carafate] 1 gm PO 4X/DAY #120 udc Transmission Status: Pending to [facility] proMETHazine tablet [Phenergan] 25 mg PO Q6H PRN PRN #10 tab PRN Reason: Nausea Transmission Status: Pending to [facility] Pantoprazole Sodium [Protonix] 20 mg PO DAILY #30 tab Transmission Status: Pending to [facility] Referrals: Simon Waite MD [NON-STAFF] - As soon as possible
[2019-10-31] MEDS: Morphine 4 MG/ML Syringe IV (10:50)
[2019-10-31] MEDS: 0.9% Normal Saline 1,000 ML 150 ML IV (10:50)
[2019-10-31] MEDS: Ondansetron 4 MG/2 ML Vial IV (10:50)
[2019-10-31 10:54] LABS: Absolute Lymphocyte Count 2.12 X10^3/uL (0.83-4.51); Absolute Neutrophil Count 7.9 X10^3/uL (2.0-7.7); Basophil# 0.02 X10^3/uL; Basophil% 0.2 % (0-1); Eosinophil# 0.01 X10^3/uL; Eosinophils% 0.1 % (0-5); Hematocrit 52.9 % (37-47); Hemoglobin 17.5 g/dL (12.0-15.0); Lymphocyte # 2.12 X10^3/ul (4.0); Lymphocyte % 19.1 % (19-41); Mean Corp Hgb Conc 33.1 g/dL (32-36); Mean Corpuscular Volume 90.6 fL (81-99); Mean Platelet Vol. 9.9 fl (6.2-12.0); Monocyte# 1.06 X10^3/uL; Monocyte% 9.5 % (0-10); NRBC Flagged by Analyzer 0 % (0-5); Neutrophil # 7.87 X10^3/uL (2.7-7.7); Neutrophil % 70.8 % (47-70); Platelet Count 440 K/mm3 (150-450); RBC Distribution Width CV 12.7 % (11.6-14.6); RBC Distribution Width SD 41.4 fl (35.1-43.9); Red Blood Count 5.84 M/mm3 (4.2-5.4); White Blood Count 11.1 K/mm3 (4.4-11.0)
[2019-10-31 10:57] LABS: Internal QC Validated? YES +Cl - CLEAR BKGD; Pregnancy, Serum, hCG Quali. NEGATIVE Negative
[2019-10-31 11:04] LABS: ALB/GLOB Ratio 0.8 RATIO (0.9-2.4); AST(SGOT) 36 U/L (15-37); Alanine Aminotransfer ALT/SGPT 41 U/L (13-56); Albumin, Serum 3.9 g/dL (3.2-5.0); Alkaline Phosphatase 62 U/L (45-117); Anion Gap 6 (5-15); BUN 15 mg/dL (7-18); BUN/Creat Ratio 17.9 RATIO (10-20); Bilirubin, Direct 0.33 mg/dL (0.00-0.30); Calcium,Total 9.2 mg/dL (8.5-10.1); Chloride 102 mmol/L (98-107); Creatinine, Serum 0.84 mg/dL (0.55-1.02); EST Glomerular Filtration Rate 82 mL/min (>60); Est Glom Filt Rate - Afr Amer 100 mL/min (>60); Estimated Creatinine Clearance 81.49 ml/min; Globulin 4.6 g/dL (2.2-4.2); Glucose 107 mg/dL (74-106); Lipase 63 U/L (73-393); Potassium 3.8 mmol/L (3.5-5.1); Protein, Total 8.5 g/dL (6.4-8.2); Sodium Level 134 mmol/L (136-145)
[2019-10-31] MEDS: Mag Hydrox/Al Hydrox/Simeth 30 ML UDC PO (11:52)
[2019-10-31 13:39] VITALS: BP 137/98; PULSE 79; RESP 18
== END 2019-10-31 13:41 | disposition home or self-care (01) ==
PROVIDERS: Emergency Provider Emergency Medicine
DX: R10.13 Epigastric pain (principal); K27.7 Chronic peptic ulcer, site unspecified, without hemorrhage or perforation; R50.9 Fever, unspecified; R11.2 Nausea with vomiting, unspecified; Z79.899 Other long term (current) drug therapy; Z87.11 Personal history of peptic ulcer disease; Z90.49 Acquired absence of other specified parts of digestive tract
CPT/HCPCS: 74177; 80053; 80076; 83690; 84703; 85025; 96361; 96365; 96375; 99285; J7030; Q9967; A4216; J2405

== ENCOUNTER 2020-03-24 13:51 | Emergency (ER) | payer MEDICAID, SELFPAY ==
[2020-03-24 13:57] VITALS: BP 104/71; PULSE 102; RESP 18; TEMP 36.3; O2SAT 99; BMI 28.1
[2020-03-24 16:14] LABS: Red Blood Cells-Urine 0 SEEN /hpf (0-5)
[2020-03-24] MEDS: 0.9% Normal Saline 1,000 ML 1000 ML IV (16:23)
[2020-03-24] MEDS: Famotidine 200 MG/20 ML MDV 20 MG in 0.9% Normal Saline (Pres. free 8 ML 300 MG IV (16:23)
[2020-03-24 16:24] VITALS: BP 136/86; PULSE 68; RESP 16
[2020-03-24 16:24] LABS: Absolute Lymphocyte Count 2.39 X10^3/uL (0.83-4.51); Absolute Neutrophil Count 6.7 X10^3/uL (2.0-7.7); Basophil# 0.03 X10^3/uL; Basophil% 0.3 % (0-1); Eosinophil# 0.02 X10^3/uL; Eosinophils% 0.2 % (0-5); Hematocrit 47.9 % (37-47); Hemoglobin 16.3 g/dL (12.0-15.0); Lymphocyte # 2.39 X10^3/ul (4.0); Lymphocyte % 22.1 % (19-41); Mean Corpuscular Volume 88.2 fL (81-99); Mean Platelet Vol. 9.7 fl (6.2-12.0); Monocyte# 1.67 X10^3/uL; Monocyte% 15.4 % (0-10); NRBC Flagged by Analyzer 0 % (0-5); Neutrophil # 6.68 X10^3/uL (2.7-7.7); Neutrophil % 61.6 % (47-70); POSITIVE DIFFERENTIAL YES; Platelet Count 404 K/mm3 (150-450); RBC Distribution Width SD 38.8 fl (35.1-43.9); Red Blood Count 5.43 M/mm3 (4.2-5.4); White Blood Count 10.8 K/mm3 (4.4-11.0)
[2020-03-24 16:27] LABS: Differential Indicated SCAN CRITERIA MET
[2020-03-24 16:39] LABS: ALB/GLOB Ratio 0.8 RATIO (0.9-2.4); AST(SGOT) 21 U/L (15-37); Alanine Aminotransfer ALT/SGPT 33 U/L (13-56); Albumin, Serum 3.9 g/dL (3.2-5.0); Alkaline Phosphatase 59 U/L (45-117); Anion Gap 7 (5-15); BUN 12 mg/dL (7-18); BUN/Creat Ratio 15.4 RATIO (10-20); Calcium,Total 9.8 mg/dL (8.5-10.1); Chloride 97 mmol/L (98-107); Creatinine, Serum 0.78 mg/dL (0.55-1.02); EST Glomerular Filtration Rate 90 mL/min (>60); Est Glom Filt Rate - Afr Amer 108 mL/min (>60); Estimated Creatinine Clearance 86.93 ml/min; Globulin 4.7 g/dL (2.2-4.2); Glucose 89 mg/dL (74-106); Lipase 61 U/L (73-393); Protein, Total 8.6 g/dL (6.4-8.2); Sodium Level 133 mmol/L (136-145)
--- NOTE | 2020-03-24 17:04 | ED.VIS.GI ---
History of Present Illness Chief Complaint: Nausea/Vomiting Informant: Patient - Abdominal Pain/Flank Pain Onset: Days Context: Gradual Onset Timing: Continuous Quality: Burning Location: Epigastric - Nausea/Vomiting/Emesis GI Symptom: Nausea, Vomiting LMP: Narrative: Patient is a 35-year-old female has approximately 8 weeks with last menstrual period of January 26. On her routine screening she was found to be positive for HIV and had a viral load of 7700. She was started on antiretroviral therapy, Biktarvy, 4 days ago. Since then she has had worsening discomfort in her epigastric region that feels like acid reflux, nausea and vomiting. She thinks it is a side effect of her medication. She states she just has been feeling well and is worried she might be dehydrated. [place] [facility] [place] She has been referred to infectious disease but is not seeing them yet. She denies any fever, chills, cough or respiratory symptoms. She has had an ultrasound confirming intrauterine gestation and denies any abnormal vaginal discharge or bleeding. She noted some very mild lower abdominal cramping. No other complaints at this time. Past Medical History - Allergies and Home Meds Allergies/Adverse Reactions: Allergies No Known Allergies Allergy (Verified 03/24/20 13:59) Primary Care Physician: Care Physician,No Primary [Primary Care Provider] - Past Medical History: - - HIV Surgical History: cholecystectomy Smoking Status: Former smoker Review of Systems General: Reports: Malaise. Denies: Chills, Fever, Sweats Eyes: Denies: Visual changes - bilaterally, Diplopia ENT: Denies: Rhinorrhea, Sore throat Cardiovascular: Denies: Chest pain, Palpitations Respiratory: Denies: Dyspnea, Cough, Dyspnea on exertion Gastrointestinal: Reports: Abdominal pain, Nausea, Vomiting. Denies: Diarrhea, Melena, Hematochezia Genitourinary: Denies: Dysuria, Hematuria, Frequency Musculoskeletal: Denies: Back pain, Extremity Pain Skin: Denies: Rash, Wounds Neurological: Denies: Headache, Weakness, Numbness Physical Exam Vital Signs/Narrative: Vital Signs Temp Pulse Resp BP Pulse Ox 03/24/20 16:24 68 16 136/86 H 03/24/20 13:57 97.4 F L 102 H 18 104/71 99 Inital Vital Signs reviewed: Yes General: Well nourished, Well developed, No Acute Distress Head: Normocephalic, Atraumatic Eyes: Perrl, EOMI ENT: Moist mucous membranes, No rhinorrhea. Negative for: Dry mucous membranes Neck: Supple, Nontender Cardiovascular: Regular rate, Regular rhythm, No murmurs Respiratory: No distress, CTA bilaterally, Chest nontender Abdomen: Soft, Nontender, Nondistended, Normal bowel sounds. Negative for: Guarding, Rebound tenderness, Knox's sign Back: Nontender, Normal Inspection Extremities: Nontender, No edema Skin: Normal color, No rash Neurological: Alert, Oriented x3, Cranial nerves II-XII grossly intact, Normal Strength, Normal Sensation Psychological: Normal affect, Normal Mood Diagnostic/Tx/Re-eval Laboratory Data 03/24/20 03/24/20 03/24/20 16:05 16:17 16:17 WBC 10.8 RBC 5.43 H Hgb 16.3 H Hct 47.9 H MCV 88.2 MCH 30.0 MCHC 34.0 RDW Std Deviation 38.8 RDW Coeff of Sbai 12.0 Plt Count 404 MPV 9.7 Immature Gran % (Auto) 0.400 Neut % (Auto) 61.6 Lymph % (Auto) 22.1 [place] % (Auto) 15.4 H Eos % (Auto) 0.2 Baso % (Auto) 0.3 Absolute Neuts (auto) 6.7 Absolute Lymphs (auto) 2.39 Nucleated RBC % 0 Differential Comment COMMENT Reactive Lymphocytes RARE Sodium 133 L Potassium 3.0 L Chloride 97 L Carbon Dioxide 29.0 Anion Gap 7 BUN 12 Creatinine 0.78 Estim Creat Clear Calc 86.93 Est GFR (MDRD) Af Amer 108 Est GFR (MDRD) Non-Af 90 BUN/Creatinine Ratio 15.4 Glucose 89 Calcium 9.8 Total Bilirubin 1.00 AST 21 ALT 33 Alkaline Phosphatase 59 Total Protein 8.6 H Albumin 3.9 Globulin 4.7 H Albumin/Globulin Ratio 0.8 L Lipase 61 L Urine Color Yellow Urine Clarity Sl. Cloudy Urine pH 6.0 Ur Specific [place] 1.020 Urine Protein 15 H Urine Glucose (UA) Normal Urine Ketones 50 H Urine Occult Blood 10 H Urine Nitrite Negative Urine Bilirubin Negative Urine Urobilinogen 1 H Ur Leukocyte Esterase 500 H Urine RBC 0 SEEN Urine WBC 10-25 SEEN Ur Squamous Epith Cells 0-5 SEEN Urine Bacteria RARE Urine Mucus 2+ - Medical Decision Making Evaluated for worsening epigastric abdominal pain and discomfort associated with starting antiretroviral therapy. She is 8 weeks . She concern about dehydration. Patient appears nontoxic in no acute distress. Her vital signs are normal.Given IV fluids, Pepcid and Zofran in the ER. She is given a GI cocktail. On reevaluation she is feeling much better.. She is slightly hemoconcentrated with a hemoglobin of 16.3 consistent with dehydration. Her sodium and potassium are mildly low. She is not have evidence of pancreatitis or hepatitis on her lab work. Her abdomen is soft and nontender. Urinalysis does show 500 leukoesterase as well as 10-25 white blood cells and rare bacteria. Patient be treated for UTI as well with Macrobid. Urine culture sent that she is . Case is discussed with her THERMOMETER MAKER who is comfortable with her being discharged with Pepcid and Zofran therapy for symptom control. Patient is instructed to eat some high potassium foods as well given her mild hypokalemia. Patient is counseled on signs and symptoms requiring return to the emergency room. Patient verbalizes agreement and understand this plan. Patient discharged home in stable and improved condition. ED Disposition - Plan for ED Patient: Disposition: Home or Assisted Living Diagnosis: Epigastric abdominal pain affecting , Medication side effect, UTI in Instructions: ED Epigastric Pain [facility], ED CYSTITIS Female Adult Prescriptions: Nitrofurantoin Macrocrystals [Macrobid] 100 mg PO Q12 #10 cap Transmission Status: Pending to [facility]30 Famotidine [Pepcid] 20 mg PO BID #28 tab Transmission Status: Pending to [facility] Ondansetron [Zofran Odt] 4 mg PO Q8H PRN PRN #10 tab PRN Reason: Nausea Transmission Status: Pending to [facility] Additional Instructions: You also appear to have a urinary tract infection. I do not think this is directly contribute to your symptoms but we will treat this as you are . Please follow-up with your THERMOMETER MAKER as well as infectious disease. Eat high potassium foods over the next few days and drink plenty of fluids.
[2020-03-24 17:06] LABS: Color, Urine Yellow (Yellow); Glucose, Dipstick Normal (Normal); Ketone-Dipstick 50 mg/dl (Negative); Leukocyte Esterase-Dipstick 500 /ul (Negative); Nitrite-Dipstick Negative (Negative); Occult Blood-Urine 10 /ul (Negative); Protein-Dipstick 15 mg/dl (Negative); Urine Bilirubin Dipstick Negative (Negative); Urine Clarity Sl. Cloudy (Clear); Urine Urobilinogen 1 mg/dl (Normal)
[2020-03-24 17:08] LABS: Reactive Lymphocyte RARE
[2020-03-24] MEDS: Mag Hydrox/Al Hydrox/Simeth 30 ML UDC PO (17:26)
[2020-03-24 17:31] LABS: Bacteria RARE /hpf (None Seen); Mucous, Urine 2+ /hpf (<or=2+); Squamous Epithelial Cells - UA 0-5 SEEN /hpf (5-10); White Blood Cells 10-25 SEEN /hpf (0-5)
[2020-03-24] MEDS: Nitrofurantoin Macrocrystals 100 MG Capsule PO (17:58)
[2020-03-24 18:01] VITALS: BP 128/87; PULSE 70; RESP 16
--- NOTE | 2020-03-24 18:02 | ED.RN ---
IV DC'ED, CATHETER INTACT, SMALL GAUZE DRESSING PLACED. DISCHARGE INSTRUCTIONS GIVEN TO AND REVIEWED WITH PATIENT, PATIENT DENIES QUESTIONS OR CONCERNS AND VOICES UNDERSTANDING OF DISCHARGE INSTRUCTIONS. PT AMBULATES OUT OF ROOM WITHOUT DIFFICULTY.
== END 2020-03-24 18:05 | disposition home or self-care (01) ==
PROVIDERS: Emergency Provider Emergency Medicine
DX: O26.891 Other specified pregnancy related conditions, first trimester (principal); R10.13 Epigastric pain; E87.6 Hypokalemia; T37.5X5A Adverse effect of antiviral drugs, initial encounter; Y92.9 Unspecified place or not applicable; O23.41 Unspecified infection of urinary tract in pregnancy, first trimester; Z21 Asymptomatic human immunodeficiency virus [HIV] infection status; Z3A.08 8 weeks gestation of pregnancy; Z79.899 Other long term (current) drug therapy; Z87.891 Personal history of nicotine dependence
CPT/HCPCS: 80053; 81001; 83690; 85025; 87086; 87088; 96361; 96374; 99284; J7030; A4216; J3490

== ENCOUNTER → 2024-09-25 | Outpatient (CLI) | payer MEDICAID, SELFPAY ==
[2024-09-25 18:17] LABS: Syphilis Antibodies Reactive (Nonreactive)
[2024-09-27 05:07] LABS: HEPATITIS B SURFACE AG Negative (Negative); Hep C Antibodies Non Reactive (Non Reactive); Hepatitis A IgM Antibody Negative (Negative); Hepatitis B Core AB IgM Negative (Negative)
[2024-09-30 12:08] LABS: HPV APTIMA, High Risk Negative (Negative)
[2024-10-01 08:26] LABS: HPV Reflexed? YES, CHARGE PATIENT
== END | disposition home or self-care (01) ==
PROVIDERS: PCP Nurse Practitioner Family; Visit Provider Nurse Practitioner Family
DX: Z11.3 Encounter for screening for infections with a predominantly sexual mode of transmission (principal); Z12.4 Encounter for screening for malignant neoplasm of cervix
CPT/HCPCS: 36415; 80074; 86780; 87624; 88175; G0145